=== PATIENT | male | born 1960 | race Caucasian/White ===

== ENCOUNTER 2017-08-09 05:05 | Emergency (ER) | payer SELFPAY ==
[~2017-08-09] VITALS: Ht 182.9 cm; Wt 93.0 kg
[2017-08-09] MEDS ORDERED: HYDROCHLOROTHIA25 MG PO (05:21)
[2017-08-09] MEDS ORDERED: LISINOPRIL20 MG PO (05:21)
[2017-08-09] MEDS ORDERED: ASPIRIN81 MG PO (05:22)
[2017-08-09] MEDS ORDERED: LEVOXYL175 MCG PO (05:22)
--- NOTE | 2017-08-10 20:49 | EKG ---
[facility] [address] [facility] [place] [address] Signed Sinus tachycardia with frequent premature ventricular complexes Possible Left atrial enlargement Nonspecific ST abnormality Abnormal ECG No previous ECGs available Confirmed by MARVIN SINGLETON MD ([id number] on 08/10/2017 8:49:44 PM Electronically Signed By: MARVIN SINGLETON MD 08/10/17 2049 PATIENT NAME: DYLON MARIA Electrocardiogram DATE OF : 58 PHYSICIAN: MARVIN SINGLETON MD REPORT #: [id number] REPORT IS CONFIDENTIAL AND NOT TO BE RELEASED WITHOUT AUTHORIZATION
== END 2017-08-09 08:02 | disposition home or self-care (01) ==
LOC: ED 05:05
DX: R07.89 Other chest pain (principal); I10 Essential (primary) hypertension; F17.200 Nicotine dependence, unspecified, uncomplicated; E89.0 Postprocedural hypothyroidism; Z86.711 Personal history of pulmonary embolism; Z95.1 Presence of aortocoronary bypass graft; Z88.8 Allergy status to other drugs, medicaments and biological substances; Z79.899 Other long term (current) drug therapy; Z79.82 Long term (current) use of aspirin
CPT/HCPCS: 71010; 71260; 80053; 84484; 85025; 93005; 93010; 96374; 96375; 99284; J1200; J2270; J2405; Q9967